=== PATIENT | male | born 1980 | race Caucasian/White ===

== ENCOUNTER 2022-01-04 05:47 | Emergency (ER) | payer BC ==
[2022-01-04 06:35] LABS: HEMOGLOBIN 15.6 gm/dl (14.0-17.5); RED BLOOD COUNT 4.96 M/UL (4.20-5.50)
[2022-01-04 07:07] LABS: BUN/CREATININE RATIO 14 (0-10)
== END 2022-01-04 10:48 | disposition home or self-care (01) ==
LOC: ER1 05:47
PROVIDERS: Physician Assistant Medical
DX: R73.9 Hyperglycemia, unspecified (principal); R55 Syncope and collapse; F15.10 Other stimulant abuse, uncomplicated; F12.10 Cannabis abuse, uncomplicated; F11.10 Opioid abuse, uncomplicated; Z20.822 Contact with and (suspected) exposure to COVID-19
CPT/HCPCS: 70450; 71045; 80053; 80307; 81001; 82009; 82550; 82553; 82962; 84484; 85025; 93005; 96361; 96374; 99285; J2405; U0002